=== PATIENT | male | born 1970 | race Hispanic/Latino ===

== ENCOUNTER 2023-02-17 13:16 | Emergency (ER) | payer OTHER ==
[2023-02-17] MEDS ORDERED: Fluorescein Opthalmic Strip ONE (13:30)
[2023-02-17] MEDS ORDERED: Proparacaine 0.5% Opth 15 ML BOT ONE (13:30)
[2023-02-17] MEDS ORDERED: Ciprofloxacin 0.3% Ophth Soln 2.5 ml Bottle EA EYE SCH (14:30)
[2023-02-17] MEDS ORDERED: Acetaminophen 500 MG TAB ONE (17:59)
== END 2023-02-17 21:19 | disposition short-term general hospital (02) ==
LOC: EEVIPCON 13:16 → ERS 13:16
DX: S05.02XA Injury of conjunctiva and corneal abrasion without foreign body, left eye, initial encounter (principal); H20.9 Unspecified iridocyclitis; I10 Essential (primary) hypertension; E78.5 Hyperlipidemia, unspecified; K21.9 Gastro-esophageal reflux disease without esophagitis; Z79.02 Long term (current) use of antithrombotics/antiplatelets
CPT/HCPCS: 99284